=== PATIENT | male | born 1965 | race Hispanic/Latino ===

== ENCOUNTER 2022-06-24 10:43 | Emergency (ER) | payer OTHER, SELFPAY | END 2022-06-24 12:54 | disposition home or self-care (01) | LOC: ERS 10:43 | DX: S20.361A Insect bite (nonvenomous) of right front wall of thorax, initial encounter (principal); S30.861A Insect bite (nonvenomous) of abdominal wall, initial encounter; S20.461A Insect bite (nonvenomous) of right back wall of thorax, initial encounter; F17.210 Nicotine dependence, cigarettes, uncomplicated; W57.XXXA Bitten or stung by nonvenomous insect and other nonvenomous arthropods, initial encounter; Y92.521 Bus station as the place of occurrence of the external cause | CPT/HCPCS: 99282 ==

== ENCOUNTER 2022-07-28 10:06 | Emergency (ER) | payer SELFPAY | END 2022-07-28 10:35 | disposition home or self-care (01) | LOC: ERS 10:06 | DX: L03.115 Cellulitis of right lower limb (principal); J45.909 Unspecified asthma, uncomplicated; F17.210 Nicotine dependence, cigarettes, uncomplicated | CPT/HCPCS: 99283 ==